=== PATIENT | male | born 1980 | race Caucasian/White ===

== ENCOUNTER 2024-07-22 19:22 | Observation (INO) | payer BC ==
--- NOTE | 2024-07-22 19:45 | ED ---
Male Urogenital HPI - General Chief complaint: Urogenital Stated complaint: Testicle issues Time Seen by Provider: 07/22/24 19:39 Source: patient, RN notes reviewed Mode of arrival: ambulatory Limitations: no limitations - History of Present Illness Initial comments: This is a 43-year-old male with no significant past medical history presenting to emergency department with referral from [facility] with concern for testicular torsion. Patient states that yesterday morning he noticed that his left testicle was swollen and was drained himself with ice packs and ibuprofen for pain. States that he was at work today notes that the pain has not gone down prompted to go to urgent care where they referred him to the emergency department. Ultrasound completed at [facility] remarkable for echogenicity of the left testicle heterogeneous without detectable vascular flow that is concerning for torsion. Currently, patient is rating his pain is about a 4 out of 10. He denies dysuria, hematuria, increase in urinary frequency or urgency, fevers, chills. States that he has mild left lower pelvic pain. Patient has a previous surgical abdominal history of cholecystectomy, and colectomy with reversal after complicated diverticulitis. - Related Data Allergies Allergy/AdvReac Type Severity Reaction Status Date / Time No Known Allergies Allergy Verified 07/22/24 19:34 Review of Systems ROS Statement: Those systems with pertinent positive or pertinent negative responses have been documented in the HPI. ROS Other: All systems not noted in ROS Statement are negative. General Exam Limitations: no limitations Eye exam: Present: normal appearance, PERRL, EOMI. Absent: scleral icterus, conjunctival injection, periorbital swelling Neck exam: Present: normal inspection. Absent: tenderness, meningismus, lymphadenopathy Respiratory exam: Present: normal lung sounds bilaterally. Absent: respiratory distress, wheezes, rales, rhonchi, stridor Cardiovascular Exam: Present: regular rate, normal rhythm, normal heart sounds. Absent: systolic murmur, diastolic murmur, rubs, gallop, clicks GI/Abdominal exam: Present: soft, tenderness (left lower, pelvic), normal bowel sounds. Absent: distended, guarding, rebound, rigid exam: Present: testicular tenderness (left), scrotal swelling (left). Absent: normal inspection, urethral discharge Extremities exam: Present: normal inspection, full ROM, normal capillary refill. Absent: tenderness, pedal edema, joint swelling, calf tenderness Back exam: Present: normal inspection Course Vital Signs 07/22/24 19:32 Temperature 98.2 F Pulse Rate 72 Respiratory 16 Rate Blood Pressure 144/77 O2 Sat by Pulse 98 Oximetry Medical Decision Making - Medical Decision Making Was pt. sent in by a medical professional or institution (HIRAM Prince, MARINE INSURANCE CLAIM EXAMINER, urgent care, hospital, or chcf...) When possible be specific @ -Patient was a transfer from [facility] with concern for left testicular torsion Did you speak to anyone other than the patient for history (EMS, parent, family, police, friend...)? What history was obtained from this source @ -No Did you review nursing and triage notes (agree or disagree)? Why? @ -I reviewed and agree with nursing and triage notes Were old charts reviewed (outside hosp., previous admission, EMS record, old EKG, old radiological studies, urgent care reports/EKG's, [facility] records)? Report findings @ -Reviewed patient's outside ultrasound is complete at [facility] completed on 07/22 which was remarkable for echogenicity of the left testicle heterogeneous without detectable vascular flow that is concerning for torsion Differential Diagnosis (chest pain, altered mental status, abdominal pain women, abdominal pain men, vaginal bleeding, weakness, fever, dyspnea, syncope, headache, dizziness, GI bleed, back pain, seizure, CVA, palpatations, mental health, musculoskeletal)? @ -Differential Abdominal Pain Men: Appendicitis, cholecystitis, diverticulosis, ischemic bowel, pancreatitis, hepatitis, UTI, gastroenteritis, AAA, incarcerated hernia, bowel obstruction, constipation, inflammatory bowel, hepatitis, peptic ulcer disease, splenic infarction, perforated viscus, testicular torsion, this is not meant to be an all-inclusive list EKG interpreted by me (3pts min.). @ -Completed at 2139 sinus rhythm with a ventricular rate of 78, FL interval 137, QRS 115, QTc 407. X-rays interpreted by me (1pt min.). @ -None done CT interpreted by me (1pt min.). @ -None done U/S interpreted by me (1pt. min.). @ -Ultrasound of the scrotum with Doppler remarkable for findings confirmed of left testicular torsion without evidence for arterial or venous waveforms to the left testes or epididymis, findings compatible with provided history of torsion, appropriate arterial and venous spectral waveforms to the right testes What testing was considered but not performed or refused? (CT, X-rays, U/S, labs)? Why? @ -None What meds were considered but not given or refused? Why? @ -None Did you discuss the management of the patient with other professionals (professionals i.e. , PA, MARINE INSURANCE CLAIM EXAMINER, lab, RT, psych nurse, health and social care teacher, child watch attendant, teacher, national insurance officer, case management rn)? Give summary @ -i spoke with supervisor inspection urologist, Dr. Plasencia, in regard to the outside facility US concerning for testicular torsion. he is requesting that patient receive another US while in the emergency department as there is low likelihood for torsion to occur outpatient his age. He is also requesting that a urinalysis be ordered. i consulted urology, Dr. Plasencia, after US report was dictated by urology indicative of left testicular torsion. Physician states that he will report to the hospital to evaluate the patient. Was smoking cessation discussed for >3mins.? @ -No Was critical care preformed (if so, how long)? @ -No Were there social determinants of health that impacted care today? How? (Homelessness, low income, unemployed, alcoholism, drug addiction, transportation, low edu. Level, literacy, decrease access to med. care, residential, rehab)? @ -No Was there de-escalation of care discussed even if they declined (Discuss DNR or withdrawal of care, Hospice)? DNR status @ -No What co-morbidities impacted this encounter? (DM, HTN, Smoking, COPD, CAD, Cancer, CVA, ARF, Chemo, Hep., AIDS, mental health diagnosis, sleep apnea, morbid obesity)? @ -None Was patient admitted / discharged? Hospital course, mention meds given and route, prescriptions, significant lab abnormalities, going to OR and other pertinent info. @ -Admitted. 43-year-old male presenting with left testicular pain. On my evaluation the patient is resting comfortably no signs of acute distress. His vitals are stable. Noted to have mild tenderness palpation of the left groin. Physical examination of the left scrotum is swollen and elevated, warm to the touch, no erythema, palpable masses. Ultrasound completed confirming a left testicular torsion without evidence of arterial or venous waveforms to the left testes or epididymitis. on reevaluation, patient states that his pain has progressed to a 6/10 and is given a dose of toradol for pain. patient is admitted to urology with impending surgery. discussed with Dr. Diana and Dr. Morales Undiagnosed new problem with uncertain prognosis? @ -No Drug Therapy requiring intensive monitoring for toxicity (Heparin, Nitro, Insulin, Cardizem)? @ -No Were any procedures done? @ -No Diagnosis/symptom? @ -testicular torsion Acute, or Chronic, or Acute on Chronic? @ -acute Uncomplicated (without systemic symptoms) or Complicated (systemic symptoms)? @ -uncomplicated Side effects of treatment? @ -No Exacerbation, Progression, or Severe Exacerbation? @ -No Poses a threat to life or bodily function? How? (Chest pain, USA, IA, pneumonia, PE, COPD, DKA, ARF, appy, cholecystitis, CVA, Diverticulitis, Homicidal, Suicidal, threat to staff... and all critical care pts) @ -yes - Lab Data Result diagrams: 07/22/24 20:45 07/22/24 20:45 Lab Results 07/22/24 07/22/24 Range/Units 20:45 20:45 WBC 10.2 (3.8-10.6) k/uL RBC 4.78 (4.30-5.90) m/uL Hgb 13.7 (13.0-17.5) gm/dL Hct 41.5 (39.0-53.0) % MCV 86.9 (80.0-100.0) fL MCH 28.6 (25.0-35.0) pg MCHC 32.9 (31.0-37.0) g/dL RDW 12.6 (11.5-15.5) % Plt Count 197 (150-450) k/uL MPV 8.8 Neutrophils % 70 % Lymphocytes % 21 % Monocytes % 6 % Eosinophils % 2 % Basophils % 0 % Neutrophils # 7.2 (1.3-7.7) k/uL Lymphocytes # 2.2 (1.0-4.8) k/uL Monocytes # 0.6 (0-1.0) k/uL Eosinophils # 0.2 (0-0.7) k/uL Basophils # 0.0 (0-0.2) k/uL Sodium 138 (137-145) mmol/L Potassium 4.0 (3.5-5.1) mmol/L Chloride 105 (98-107) mmol/L Carbon Dioxide 25 (22-30) mmol/L Anion Gap 8 mmol/L BUN 11 (9-20) mg/dL Creatinine 0.83 (0.66-1.25) mg/dL Est GFR (CKD-EPI)AfAm >90 (>60 ml/min/1.73 sqM) Est GFR (CKD-EPI)NonAf >90 (>60 ml/min/1.73 sqM) Glucose 88 (74-99) mg/dL Calcium 9.0 (8.4-10.2) mg/dL Total Bilirubin 0.8 (0.2-1.3) mg/dL AST 34 (17-59) U/L ALT 60 H (4-49) U/L Alkaline Phosphatase 55 (38-126) U/L Total Protein 7.1 (6.3-8.2) g/dL Albumin 4.4 (3.5-5.0) g/dL Disposition Clinical Impression: Left testicular torsion Disposition: ADMITTED IP TO THIS [facility] Condition: Serious Referrals: Angel Reynolds MD [Primary Care Provider] - 1-2 days Decision to Admit Reason: Admit from EC Decision Date: 07/22/24 Decision Time: 23:30
--- NOTE | 2024-07-22 21:16 | US ---
EXAMINATION TYPE: US scrotum with doppler. DATE OF EXAM: 07/22/2024 COMPARISON: NONE CLINICAL INDICATION: Male, 43 years old with history of L testicular pain, r/o torsion; Pt states lef t testicle pain and swelling since yesterday/ pt states he was told he has torsion at outside facilit y. TECHNIQUE: Grayscale, color Doppler and spectral Doppler imaging of the scrotum. FINDINGS: EXAM MEASUREMENTS: TESTICLES: Right Testicle: 5.9 x 2.8 x 3.5 cm Left Testicle: 5.8 x 3.1 x 4.0 cm heterogenous echotexture slightly compared to the right. EPIDIDYMIS HEAD: Right Epididymis: 1.9 cm Left Epididymis: 1.7 cm Doppler performed to assess for testicular vascularity; good color flow and spectral waveforms are se en in the right testis. There is no evidence of colon Doppler flow in the left testis or epididymis . Presence of hydroceles: No Presence of varicoceles: No Possible small epi cysts right side Left testicle heterogeneous with no evidence of blood flow within left epididymis or testicle IMPRESSION: Findings confirmed of left testicular torsion without evidence for arterial or venous waveforms to th e left testis or epididymis. Findings compatible with provided history of torsion. Urologic consultat ion recommended. Appropriate arterial and venous spectral waveforms to the right testis. [facility], , 07/22/2024 9:14 PM
[2024-07-22 21:17] LABS: Basophils % (A) 0 %; Eosinophils # (A) 0.2 k/uL (0-0.7); Eosinophils % (A) 2 %; HCT 41.5 % (39.0-53.0); HGB 13.7 gm/dL (13.0-17.5); Lymphocytes # (A) 2.2 k/uL (1.0-4.8); Lymphocytes % (A) 21 %; MCH 28.6 pg (25.0-35.0); MCHC 32.9 g/dL (31.0-37.0); MCV 86.9 fL (80.0-100.0); Mean Platelet Volume 8.8; Monocytes # (A) 0.6 k/uL (0-1.0); Monocytes % (A) 6 %; Neutrophils # (A) 7.2 k/uL (1.3-7.7); Neutrophils % (A) 70 %; Platelet Count 197 k/uL (150-450); RBC 4.78 m/uL (4.30-5.90); RDW 12.6 % (11.5-15.5); WBC 10.2 k/uL (3.8-10.6)
[2024-07-22 21:24] LABS: ALT 60 U/L (4-49); AST 34 U/L (17-59); African American GFR (CKD) >90 (>60 ml/min/1.73 sqM); Albumin 4.4 g/dL (3.5-5.0); Alkaline Phosphatase 55 U/L (38-126); Anion Gap 8 mmol/L; Blood Urea Nitrogen 11 mg/dL (9-20); Carbon Dioxide 25 mmol/L (22-30); Chloride 105 mmol/L (98-107); Glucose 88 mg/dL (74-99); Non-African American GFR(CKD) >90 (>60 ml/min/1.73 sqM); Sodium 138 mmol/L (137-145); Total Bilirubin 0.8 mg/dL (0.2-1.3); Total Protein 7.1 g/dL (6.3-8.2)
[2024-07-22] MEDS: SODIUM CHLORIDE 0.9% 1,000 ML IV STA (21:24)
[2024-07-22] MEDS ORDERED: MORPHINE SULFATE 4 MG/ML SYRINGE IV PRN (21:43)
[2024-07-22] MEDS ORDERED: NALOXONE 0.4 MG/ML 1 ML VIAL IV PRN (21:43)
[2024-07-22] MEDS: KETOROLAC 15 MG/ML 1 ML VIAL IVP STA (22:14)
--- NOTE | 2024-07-22 22:34 | P.GSHP ---
History of Present Illness H&P Date: 07/22/24 Chief Complaint: Left testicular pain and swelling The patient is a 43-year-old white male who has experienced left testicular pain and swelling since yesterday morning. He has had no prior similar episodes. He was initially evaluated at [facility], where ultrasound suggested the presence of testicular torsion. He was transferred to [facility], and repeat ultrasound confirmed the absence of blood flow to the left testicle, which was also noted to be heterogenous in appearance. - Constitutional Constitutional: Denies chills, Denies fever - Genitourinary (Male) Genitourinary: Denies dysuria, Denies hematuria Medications and Allergies Allergies Allergy/AdvReac Type Severity Reaction Status Date / Time No Known Allergies Allergy Verified 07/22/24 19:34 Surgical - Exam Vital Signs Temp Pulse Resp BP Pulse Ox 98.2 F 72 16 144/77 98 07/22/24 19:32 07/22/24 19:32 07/22/24 19:32 07/22/24 19:32 07/22/24 19:32 - General well developed, well nourished, moderate distress - Respiratory normal respiratory effort - Abdomen Abdomen: soft, non tender, no guarding, no rigid, no rebound - Genitourinary Normal phallus. Normal right testicle. The left testicle is tender and enlarged, and somewhat high riding. - Psychiatric oriented to time, oriented to person, oriented to place, speech is normal, memory intact Results - Labs 07/22/24 20:45 07/22/24 20:45 Abnormal Lab Results - Last 24 Hours (Table) 07/22/24 Range/Units 20:45 ALT 60 H (4-49) U/L Diabetes panel 07/22/24 Range/Units 20:45 Sodium 138 (137-145) mmol/L Potassium 4.0 (3.5-5.1) mmol/L Chloride 105 (98-107) mmol/L Carbon Dioxide 25 (22-30) mmol/L BUN 11 (9-20) mg/dL Creatinine 0.83 (0.66-1.25) mg/dL Glucose 88 (74-99) mg/dL Calcium 9.0 (8.4-10.2) mg/dL AST 34 (17-59) U/L ALT 60 H (4-49) U/L Alkaline Phosphatase 55 (38-126) U/L Total Protein 7.1 (6.3-8.2) g/dL Albumin 4.4 (3.5-5.0) g/dL Calcium panel 07/22/24 Range/Units 20:45 Calcium 9.0 (8.4-10.2) mg/dL Albumin 4.4 (3.5-5.0) g/dL Pituitary panel 07/22/24 Range/Units 20:45 Sodium 138 (137-145) mmol/L Potassium 4.0 (3.5-5.1) mmol/L Chloride 105 (98-107) mmol/L Carbon Dioxide 25 (22-30) mmol/L BUN 11 (9-20) mg/dL Creatinine 0.83 (0.66-1.25) mg/dL Glucose 88 (74-99) mg/dL Calcium 9.0 (8.4-10.2) mg/dL Adrenal panel 07/22/24 Range/Units 20:45 Sodium 138 (137-145) mmol/L Potassium 4.0 (3.5-5.1) mmol/L Chloride 105 (98-107) mmol/L Carbon Dioxide 25 (22-30) mmol/L BUN 11 (9-20) mg/dL Creatinine 0.83 (0.66-1.25) mg/dL Glucose 88 (74-99) mg/dL Calcium 9.0 (8.4-10.2) mg/dL Total Bilirubin 0.8 (0.2-1.3) mg/dL AST 34 (17-59) U/L ALT 60 H (4-49) U/L Alkaline Phosphatase 55 (38-126) U/L Total Protein 7.1 (6.3-8.2) g/dL Albumin 4.4 (3.5-5.0) g/dL - Imaging US - pelvic: report reviewed Assessment and Plan (1) Left testicular torsion Current Visit: Yes Status: Acute Code(s): N44.00 - TORSION OF TESTIS, UNSPEC IFIED SNOMED Code(s): 33376372 Plan: Patient will undergo left scrotal exploration. If he is confirmed to have testicular torsion, detorsion will be performed and the testicle will be evaluated. If findings are consistent with infarct, an orchiectomy will be performed. If there appears to be even a possibility of viability, and orchiopexy will be performed. Regardless the status of left testicular viability, if torsion is confirmed a right orchiopexy will be performed. The rationale for this was reviewed in detail with the patient. Potential risks were also discussed, which include anesthesia, bleeding, and infection.
[2024-07-22] MEDS: ONDANSETRON 4 MG/2 ML VIAL IVP STA (22:37)
[2024-07-22] MEDS: DEXAMETHASONE SOD PHOSPHATE 4 MG/ML 1 ML VIAL IVP STA (22:38)
[2024-07-22] MEDS ORDERED: MIDAZOLAM 2 MG/2 ML VIAL ONE (22:38)
[2024-07-22] MEDS: LACTATED RINGERS 1,000 ML IV ONE ×2 (22:38→23:00)
[2024-07-22] MEDS ORDERED: fentaNYL (PF) 50 MCG/ML 2 ML AMP ONE (22:38)
[2024-07-22] MEDS: SODIUM CHLORIDE 0.9% 100 ML with ceFAZolin 2,000 MG IV ONE (22:38)
[2024-07-22] MEDS ORDERED: PROPOFOL 10 MG/ML 20 ML VIAL IV ONE (22:38)
[2024-07-22] MEDS ORDERED: LIDOCAINE 1% INJ 10MG/ML (20 ML MDV) ONE (22:38)
[2024-07-22] MEDS: BUPIVACAINE (PF) 0.5% 30 ML VIAL SQ ONE ×2 (23:05→23:41)
[2024-07-22] MEDS ORDERED: HYDROmorphone 2 MG/ML 1 ML SYRINGE IVP PRN (23:50)
--- NOTE | 2024-07-22 23:50 | P.OP ---
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 He has had no prior similar episodes. He was initially evaluated at [facility], where ultrasound suggested the presence of testicular torsion. He was transferred to [facility], and repeat ultrasound confirmed the absence of blood flow to the left testicle, which was also noted to be heterogenous in appearance. Operative Findings: Left testicular torsion with testicular infarct. Description of Procedure: The patient was taken to the operating room and placed in the supine position. The external genitalia was prepped and draped sterilely. The scalpel was used to make a transverse left anterior scrotal incision. The Bovie electrocautery was used to incise the dartos fascia, which was edematous. The tunica vaginalis was opened, and some blood was noted around the testicle. The testicle was delivered through the wound and was obviously necrotic. It was torsed 360 degrees, but the appearance of the testicle failed to improved following detorsion. Therefore, the decision was made to perform a left orchiectomy. The spermatic cord was suture-ligated twice using 2-0 Vicryl suture, and the spermatic cord was then divided distal to the ligatures, allowing removal of the testicle. 0.5% ropivacaine was injected into the stump of the left spermatic cord. Hemostasis was excellent. The dartos fascia was closed using 3-0 Vicryl suture in a running fashion. The ropivacaine was injected subcutaneously, and the skin was then closed using 3-0 chromic suture in a running fashion. A mirror right sided incision was made, and the right testicle was delivered through the wound. The testicle appeared normal. 3-0 silk sutures were placed through the tunica albuginea medially, laterally, and inferiorly. The testicle was returned to the right hemiscrotum, and each of the sutures were then passed through the scrotal wall in the corresponding location for fixation. After tying the sutures, and ensuring that hemostasis was excellent, the wound was closed in an identical fashion to the left side. All sponge and needle counts were correct. Ropivacaine was injected into the spermatic cord and subcutaneously, as it was on the left side. Surgical fluffs were placed over the scrotum, followed by scrotal support. The patient tolerated the procedure well and was taken to the recovery room in stable condition.
[2024-07-22] MEDS: MEPERIDINE 50 MG/ML SYRINGE IVP STA (23:54)
[2024-07-23] MEDS ORDERED: HYDROmorphone 1 MG/ML 1 ML SYRINGE IVP PRN (00:11)
[2024-07-23] MEDS: DEXTROSE 5%-0.45% NACL 1,000 ML IV SCH (01:00)
[2024-07-23 01:16] VITALS: RESP 16
[2024-07-23 02:46] LABS: Appearance,Urine Clear (Clear); Bilirubin,Urine Negative (Negative); Blood,Urine Negative (Negative); Color,Urine Colorless; Glucose,Urine (UA) Negative (Negative); Ketones,Urine Negative (Negative); Leukocyte Esterase,Urine Negative (Negative); Nitrite,Urine Negative (Negative); Protein,Urine Negative (Negative); Specific Gravity,Urine 1.013 (1.001-1.035); Urobilinogen,Urine <2.0 mg/dL (<2.0)
[2024-07-23 02:58] LABS: Prothrombin Time 10.5 sec (10.0-12.5)
[2024-07-23] MEDS: KETOROLAC 15 MG/ML 1 ML VIAL IVP PRN (06:18)
[2024-07-23 08:21] VITALS: BP 118/70; PULSE 89; TEMP 98.2
--- NOTE | 2024-07-23 09:27 | P.DS ---
Providers Date of admission: 07/22/24 21:45 Expected date of discharge: 07/23/24 Attending physician: Ori Plasencia Primary care physician: Angel Reynolds - Discharge Diagnosis(es) (1) Left testicular torsion Current Visit: Yes Status: Acute Hospital Course: The patient is a 43-year-old white male admitted with a 36-hour history of left testicular pain and swelling. Ultrasound findings were consistent with left testicular torsion. He underwent left scrotal exploration, which revealed left testicular infarct. A left orchiectomy was performed, along with a right orchiopexy. On the first postoperative day, the patient reported mild scrotal discomfort but overall felt well. He was tolerating diet. The incisions were clean and dry. There was no significant scrotal swelling. Procedures: Left scrotal exploration with orchiectomy, right orchiopexy on 07/22/2024. Patient Condition at Discharge: Good Plan - Discharge Summary Discharge Rx Participant: No New Discharge Prescriptions: New Ketorolac [Toradol] 10 mg PO Q6HR PRN #10 tab PRN Reason: Pain Discharge Medication List Ketorolac [Toradol] 10 mg PO Q6HR PRN #10 tab 07/23/24 [Rx] Follow up Appointment(s)/Referral(s): Angel Reynolds MD [Primary Care Provider] - 1-2 days Ori Plasencia MD [STAFF PHYSICIAN] - 2 Weeks Activity/Diet/Wound Care/Special Instructions: Diet as tolerated. May shower on July 24, 2024. No lifting or strenuous activity for 2 weeks. Discharge Disposition: HOME SELF-CARE
== END 2024-07-23 10:43 | disposition home or self-care (01) ==
LOC: EC 19:22 → 5NMEDONC 21:45
PROVIDERS: ADMIT Urology; ATTEND Urology
DX: N50.1 Vascular disorders of male genital organs (principal); N44.00 Torsion of testis, unspecified
CPT/HCPCS: 96365; 96366; 96375; 99285; 36415; 93005; 80053; 85025; 85610; 85730; 81003; 93975; 76870; 54520; 54640; G0378 ×2; J1100; J2175; J0690 ×2; J2405; J1885; J0665; 88305